=== PATIENT | female | born 1945 | race Two or more races ===

== ENCOUNTER 2023-06-01 12:09 | Emergency (ER) | payer OTHER ==
[~2023-06-01] VITALS: Ht 165.1 cm; Wt 89.4 kg
[2023-06-01] MEDS ORDERED: ACETAMINOPHEN 500 MG TAB PO ONE (14:00)
[2023-06-01 14:19] VITALS: BP 174/69; PULSE 75; RESP 18; TEMP 98.5; O2SAT 98
[2023-06-01] MEDS ORDERED: ACET-1080 PO (15:07)
[2023-06-01] MEDS ORDERED: METR-344 PO ×2 (15:07)
[2023-06-01] MEDS ORDERED: METH-1181 PO (15:23)
== END 2023-06-01 15:26 | disposition home or self-care (01) ==
LOC: ER 12:09
DX: S53.402A Unspecified sprain of left elbow, initial encounter (principal); S53.401A Unspecified sprain of right elbow, initial encounter; S16.1XXA Strain of muscle, fascia and tendon at neck level, initial encounter; E11.9 Type 2 diabetes mellitus without complications; I10 Essential (primary) hypertension; W18.09XA Striking against other object with subsequent fall, initial encounter; Y93.89 Activity, other specified; Y92.89 Other specified places as the place of occurrence of the external cause; Y99.8 Other external cause status
CPT/HCPCS: 72040; 73080